=== PATIENT | male | born 1980 | race Caucasian/White ===

== ENCOUNTER → 2019-08-11 09:10 | Outpatient (CLI) | payer BC, SELFPAY ==
--- NOTE | ~2019-08-11 | XR_ITS ---
EXAMINATION: XR thoracic spine 3V DATE: 08/11/2019 09:49 INDICATION: Mid to upper back pain post fall 2 months prior. TECHNIQUE: One AP, lateral and lateral swimmer's views of the thoracic spine were obtained. COMPARISON: None. FINDINGS: Midthoracic kyphosis centered at the T8 compression fracture with 60% anterior vertebral body height loss. No evident retropulsion along the posterior wall. Remaining vertebral body heights are normal. Thoracic disc heights are normal. Mild disc height loss compatible levels in the lower cervical spine , likely C5-C6 and C6-C7. Visualized portions of the lungs are clear. No pleural effusion or pneumoth orax. Cardiomediastinal silhouette is normal. IMPRESSION: 1. T8 compression fracture with 60% anterior vertebral body height loss. Reviewed, dictated and finalized at location A. [employer]
== END ==
PROVIDERS: PCP Family Medicine; Visit Provider Family Medicine
DX: S22.060A Wedge compression fracture of T7-T8 vertebra, initial encounter for closed fracture (principal)
CPT/HCPCS: 72072